=== PATIENT | female | born 1940 | race Caucasian/White ===

== ENCOUNTER 2017-08-13 23:32 | Inpatient (IN) | payer MEDICARE, MEDICAID ==
[~2017-08-13] VITALS: Ht 152.4 cm; Wt 70.0 kg
[~2017-08-13 23:32] MED LIST: ALB0.5UD IH; ALPR-624 PO; AMIT-189 PO; CLOP75TA35 PO; HYDR25TA4 PO; LOSA25TA96 PO; METF500T6 PO; METO10TA3 PO; METO25TA6 PO; PANT-47 PO; PRAM0.129 PO; SIMV20TA PO; SUCR1TAB PO; TRAZ-143 PO; VENL-191 PO
[2017-08-13] MEDS ORDERED: OMEP40CA37 PO (23:57)
[2017-08-13] MEDS ORDERED: HYDR-3965 PO (23:57)
[2017-08-13] MEDS ORDERED: LORA10TA7 PO (23:57)
[2017-08-13] MEDS ORDERED: DIPH25CA83 PO (23:57)
[2017-08-14] VITALS (17 sets, daily range): BP systolic 118–181; BP diastolic 49–93
[2017-08-14] MEDS: pantoprazole 40MG/NS 100ML BAG 100 ML IV SCH ×6 (00:12→19:25)
[2017-08-14 00:24] LABS: BASOPHILS % (AUTO) 0.4 % (0-1); EOSINOPHILS % (AUTO) 0.2 % (0-6); HEMATOCRIT 26.9 % (35.0-45.0); LYMPHOCYTES # (AUTO) 3.2 X10'3 (1.1-4.8); LYMPHOCYTES % (AUTO) 30.1 % (21-51); MEAN CORPUSCULAR HEMOGLOBIN 29.5 PG (27.0-31.0); MEAN CORPUSCULAR HGB CONC 33.4 % (33.0-36.5); MEAN CORPUSCULAR VOLUME 88.3 FL (78-98); MEAN PLATELET VOLUME 7.9 FL (7.4-10.4); MONOCYTES # (AUTO) 0.8 X10'3 (0-0.9); MONOCYTES % (AUTO) 7.7 % (2-12); NEUTROPHILS # (AUTO) 6.5 X10'3 (1.8-7.7); NEUTROPHILS % (AUTO) 61.6 % (42-75); PLATELET COUNT 207 X10'3 (140-440); RED BLOOD COUNT 3.04 X10'6 (4.20-5.60); RED CELL DISTRIBUTION WIDTH 15.1 % (11.5-14.5); WHITE BLOOD COUNT 10.5 X10'3 (4.5-11.0)
[2017-08-14 00:36] LABS: PARTIAL THROMBOPLASTIN TIME 23 SECONDS (22-32); PROTHROMBIN TIME 10.3 SECONDS (9.0-12.0)
[2017-08-14 00:39] LABS: ALANINE AMINOTRANSFERASE 9 U/L (12-78); ALBUMIN 2.4 G/DL (3.4-5.0); ALBUMIN/GLOBULIN RATIO 0.9 (1.1-1.5); ALKALINE PHOSPHATASE 67 IU/L (46-116); ANION GAP 10 (8-16); ASPARTATE AMINO TRANSFERASE 10 U/L (10-37); BILIRUBIN,TOTAL 0.2 MG/DL (0.1-1.0); BLOOD UREA NITROGEN 76 MG/DL (7-18); CALCIUM 7.3 MG/DL (8.5-10.1); CHLORIDE 109 MMOL/L (99-107); CREATININE 1.69 MG/DL (0.40-0.90); GLUCOSE 113 MG/DL (70-104); POTASSIUM 4.5 MMOL/L (3.5-5.1); SODIUM 140 MMOL/L (135-145); TOTAL CARBON DIOXIDE 20.6 MMOL/L (24-32); TOTAL PROTEIN 5.2 G/DL (6.4-8.2); eGFR 30 ML/MIN
[2017-08-14 02:06] LABS: CLARITY,URINE CLOUDY (Clear); COLOR,URINE YELLOW (Yellow); GLUCOSE, URINE NEGATIVE (Neg); KETONES,URINE NEGATIVE (Neg); LEUKOCYTE ESTERASE ,URINE LARGE (Neg); NITRITES, URINE POSITIVE (Neg); OCCULT BLOOD,URINE SMALL (Neg); PH,URINE 5.5 (4.8-8.0); PROTEIN,URINE NEGATIVE (Neg); UROBILINOGEN,URINE 0.2 E.U/dL (0.2-1.0)
[2017-08-14 02:10] LABS: UA COLLECTION TYPE CLN CATCH MIDSTREAM
[2017-08-14] MEDS ORDERED: acetaminophen 325mg tablet PO ONE (02:10)
[2017-08-14 02:37] LABS: WBC,URINE 30-50 /HPF (0-4)
[2017-08-14 02:38] LABS: BACTERIA,URINE 2+ /HPF (Neg); MUCUS STRANDS FEW /LPF (Neg); RBC,URINE 0-2 /HPF (0-2); SQUAMOUS EPITHELIAL CELL,UR MODERATE /LPF (FEW)
[2017-08-14] MEDS ORDERED: ondansetron/PF 4mg/2ml inj IV PRN (03:35)
[2017-08-14] MEDS ORDERED: MESSAGE TO PHARMACY PO ONE (03:50)
[2017-08-14] MEDS ORDERED: glucagon, human recombinant 1mg kit SUBCUT PRN (03:50)
[2017-08-14] MEDS ORDERED: dextrose ORAL solution 15 GM/59 ML bottle PO PRN ×2 (03:50)
[2017-08-14] MEDS ORDERED: dextrose 50%-water 50ml dispensing syringe IV PRN ×2 (03:50)
[2017-08-14] MEDS ORDERED: insulin Lispro (HumaLOG) vial - multi-dose SQ SCH (03:50)
[2017-08-14] MEDS: normal saline 1000ml 1,000 ML IV SCH ×4 (03:55→23:34)
[2017-08-14 04:12] LABS: HEMOGLOBIN A1C 7.3 % (4.5-6.2)
[2017-08-14 09:10] LABS: MAGNESIUM 1.5 MG/DL (1.5-2.4)
[2017-08-14] MEDS: CefTRIAXone/D5W-Rocephin 1gm 50 ML IV SCH ×2 (10:25→19:23)
[2017-08-14] MEDS ORDERED: AMIT-189 PO (11:59)
[2017-08-14] MEDS ORDERED: SPIR25TA5 PO (12:00)
[2017-08-14] MEDS ORDERED: LOSA25TA96 PO (12:00)
[2017-08-14] MEDS ORDERED: LORA10TA7 PO (12:00)
[2017-08-14] MEDS ORDERED: BISO1TAB4 PO (12:01)
[2017-08-14] MEDS ORDERED: METO25TA6 PO (12:02)
[2017-08-14] MEDS ORDERED: FURO-150 IV (12:08)
[2017-08-14] MEDS ORDERED: LIDOcaine Viscous 15ml cup ONE (15:50)
[2017-08-14] MEDS ORDERED: MIDAZolam 5mg/5ml vial ONE (15:50)
[2017-08-14] MEDS ORDERED: fentaNYL/PF 50MCG/1 ML 2ML syringe ONE (15:50)
[2017-08-14] MEDS ORDERED: glucagon, human recombinant 1mg kit ONE (16:54)
[2017-08-14] MEDS ORDERED: epiNEPHrine 0.1mg/ml 10ml syringe ONE (16:56)
[2017-08-14] MEDS ORDERED: lisinopril 10 MG tablet PO SCH (18:40)
[2017-08-14] MEDS ORDERED: morphine 2 MG/ML inj. syringe IV PRN (18:40)
[2017-08-14] MEDS ORDERED: hydrALAZINE 20mg/ml inj. IV PRN (18:40)
[2017-08-14 19:05] LABS: BASOPHILS % (AUTO) 0 % (0-1); EOSINOPHILS # (AUTO) 0.1 X10'3 (0-0.9); HEMATOCRIT 22.4 % (35.0-45.0); HEMOGLOBIN 7.6 g/dl (12.0-16.0); LYMPHOCYTES # (AUTO) 1.1 X10'3 (1.1-4.8); MEAN CORPUSCULAR HEMOGLOBIN 30.2 PG (27.0-31.0); MEAN CORPUSCULAR VOLUME 88.7 FL (78-98); MEAN PLATELET VOLUME 7.6 FL (7.4-10.4); MONOCYTES # (AUTO) 0.5 X10'3 (0-0.9); MONOCYTES % (AUTO) 4.9 % (2-12); NEUTROPHILS # (AUTO) 9.3 X10'3 (1.8-7.7); NEUTROPHILS % (AUTO) 84.1 % (42-75); PLATELET COUNT 190 X10'3 (140-440); RED BLOOD COUNT 2.53 X10'6 (4.20-5.60); RED CELL DISTRIBUTION WIDTH 15.6 % (11.5-14.5); WHITE BLOOD COUNT 11.1 X10'3 (4.5-11.0)
[2017-08-14 19:14] LABS: ALANINE AMINOTRANSFERASE 9 U/L (12-78); ALBUMIN 2.4 G/DL (3.4-5.0); ALBUMIN/GLOBULIN RATIO 0.8 (1.1-1.5); ALKALINE PHOSPHATASE 65 IU/L (46-116); ANION GAP 9 (8-16); ASPARTATE AMINO TRANSFERASE 10 U/L (10-37); BILIRUBIN,TOTAL 0.2 MG/DL (0.1-1.0); BLOOD UREA NITROGEN 64 MG/DL (7-18); CALCIUM 7.5 MG/DL (8.5-10.1); CHLORIDE 110 MMOL/L (99-107); CREATININE 1.49 MG/DL (0.40-0.90); GLUCOSE 205 MG/DL (70-104); SODIUM 141 MMOL/L (135-145); TOTAL CARBON DIOXIDE 21.7 MMOL/L (24-32); TOTAL PROTEIN 5.3 G/DL (6.4-8.2); eGFR 34 ML/MIN
[2017-08-14 19:22] LABS: MAGNESIUM 1.4 MG/DL (1.5-2.4); TROPONIN I < 0.04 NG/ML (0.0-0.05)
[2017-08-14] MEDS: metoprolol tartrate 25mg tablet PO SCH (19:24)
[2017-08-14] MEDS: atorvastatin 20mg tablet PO SCH (19:24)
[2017-08-14] MEDS: lactobacillus rhamnosus 10,000 MMU CELLS/CAPSULE PO SCH (19:24)
[2017-08-14] MEDS: amitryptiline 50mg tablet PO SCH (21:18)
[2017-08-14] MEDS: sucralfate 1 gm tablet PO SCH (21:28)
[2017-08-15] VITALS (17 sets, daily range): BP systolic 96–148; BP diastolic 43–76
[2017-08-15] MEDS: pantoprazole 40MG/NS 100ML BAG 100 ML IV SCH ×6 (01:24→23:27)
[2017-08-15 05:44] LABS: BASOPHILS % (AUTO) 0.3 % (0-1); EOSINOPHILS % (AUTO) 0.3 % (0-6); LYMPHOCYTES # (AUTO) 2.4 X10'3 (1.1-4.8); MEAN CORPUSCULAR HEMOGLOBIN 29.9 PG (27.0-31.0); MEAN CORPUSCULAR HGB CONC 33.5 % (33.0-36.5); MEAN CORPUSCULAR VOLUME 89.3 FL (78-98); MEAN PLATELET VOLUME 7.7 FL (7.4-10.4); MONOCYTES # (AUTO) 0.6 X10'3 (0-0.9); MONOCYTES % (AUTO) 6.7 % (2-12); NEUTROPHILS # (AUTO) 6.5 X10'3 (1.8-7.7); NEUTROPHILS % (AUTO) 67.7 % (42-75); PLATELET COUNT 191 X10'3 (140-440); RED BLOOD COUNT 2.27 X10'6 (4.20-5.60); RED CELL DISTRIBUTION WIDTH 15.4 % (11.5-14.5); WHITE BLOOD COUNT 9.5 X10'3 (4.5-11.0)
[2017-08-15 06:02] LABS: ALANINE AMINOTRANSFERASE 12 U/L (12-78); ALBUMIN 2.3 G/DL (3.4-5.0); ALBUMIN/GLOBULIN RATIO 0.9 (1.1-1.5); ALKALINE PHOSPHATASE 59 IU/L (46-116); ANION GAP 10 (8-16); ASPARTATE AMINO TRANSFERASE 10 U/L (10-37); BILIRUBIN,TOTAL 0.2 MG/DL (0.1-1.0); BLOOD UREA NITROGEN 47 MG/DL (7-18); BUN/CREATININE RATIO 35.3 (6.6-38.0); CALCIUM 8.1 MG/DL (8.5-10.1); CHLORIDE 111 MMOL/L (99-107); CREATININE 1.33 MG/DL (0.40-0.90); GLUCOSE 124 MG/DL (70-104); POTASSIUM 3.8 MMOL/L (3.5-5.1); SODIUM 143 MMOL/L (135-145); TOTAL CARBON DIOXIDE 21.6 MMOL/L (24-32); eGFR 39 ML/MIN
[2017-08-15 06:05] LABS: TROPONIN I < 0.04 NG/ML (0.0-0.05)
[2017-08-15 06:11] LABS: HEMOGLOBIN 6.8 g/dl (12.0-16.0)
[2017-08-15 06:12] LABS: HEMATOCRIT 20.3 % (35.0-45.0)
[2017-08-15] MEDS: sucralfate 1 gm tablet PO SCH ×4 (07:31→20:23)
[2017-08-15] MEDS ORDERED: magnesium 4gm in 100ml NS 100 ML IV PRN (08:05)
[2017-08-15] MEDS ORDERED: magnesium Cl slow-release 64mg tablet PO PRN (08:05)
[2017-08-15] MEDS ORDERED: magnesium/D5W IVPB 50 ML IV PRN (08:05)
[2017-08-15 08:34] LABS: H PYLORI ANTIBODY NEGATIVE (Neg)
[2017-08-15] MEDS ORDERED: proCHLORperazine 10 MG/2 ml inj IV PRN ×2 (08:40→09:50)
[2017-08-15] MEDS ORDERED: ondansetron/PF 4mg/2ml inj IV PRN (08:40)
[2017-08-15] MEDS: CefTRIAXone/D5W-Rocephin 1gm 50 ML IV SCH ×2 (09:23→20:19)
[2017-08-15] MEDS: normal saline 1000ml 1,000 ML IV SCH ×2 (09:34→20:23)
[2017-08-15] MEDS: lactobacillus rhamnosus 10,000 MMU CELLS/CAPSULE PO SCH ×2 (09:35→20:23)
[2017-08-15] MEDS: losartan 25mg tablet PO SCH (09:35)
[2017-08-15] MEDS: atorvastatin 20mg tablet PO SCH (09:35)
[2017-08-15] MEDS: metoprolol tartrate 25mg tablet PO SCH ×2 (09:36→20:25)
[2017-08-15] MEDS: nitroGLYCERIN 0.4mg/hour patch TD SCH (09:37)
[2017-08-15] MEDS ORDERED: HYDROcodone/acetaminophen 5mg/325mg tablet PO PRN (09:50)
[2017-08-15] MEDS ORDERED: HYDROmorphone inj. 0.5 MG/0.5 ML DISP.SYRIN IV PRN (09:50)
[2017-08-15] MEDS ORDERED: HYDROcodone/acetaminophen 10/325mg tab PO PRN (09:50)
[2017-08-15] MEDS ORDERED: HYDROmorphone 1 mg/ml syringe IV PRN (09:59)
[2017-08-15 10:11] LABS: BASOPHILS % (AUTO) 0.3 % (0-1); EOSINOPHILS # (AUTO) 0.1 X10'3 (0-0.9); EOSINOPHILS % (AUTO) 0.7 % (0-6); LYMPHOCYTES # (AUTO) 2.2 X10'3 (1.1-4.8); LYMPHOCYTES % (AUTO) 24.2 % (21-51); MEAN CORPUSCULAR HEMOGLOBIN 29.5 PG (27.0-31.0); MEAN CORPUSCULAR HGB CONC 33.3 % (33.0-36.5); MEAN CORPUSCULAR VOLUME 88.6 FL (78-98); MEAN PLATELET VOLUME 7.3 FL (7.4-10.4); MONOCYTES # (AUTO) 0.7 X10'3 (0-0.9); MONOCYTES % (AUTO) 7.3 % (2-12); NEUTROPHILS # (AUTO) 6.2 X10'3 (1.8-7.7); NEUTROPHILS % (AUTO) 67.5 % (42-75); PLATELET COUNT 187 X10'3 (140-440); RED BLOOD COUNT 2.24 X10'6 (4.20-5.60); WHITE BLOOD COUNT 9.2 X10'3 (4.5-11.0)
[2017-08-15 10:16] LABS: HEMATOCRIT 19.9 % (35.0-45.0); HEMOGLOBIN 6.6 g/dl (12.0-16.0)
[2017-08-15] MEDS ORDERED: pantoprazole 40 MG vial IV SCH (16:00)
[2017-08-15] MEDS: pramipexole 0.25mg tablet PO SCH (18:19)
[2017-08-15] MEDS: amitryptiline 50mg tablet PO SCH (20:25)
[2017-08-15 23:13] LABS: HEMATOCRIT 26.2 % (35.0-45.0); HEMOGLOBIN 8.9 g/dl (12.0-16.0); MEAN CORPUSCULAR HEMOGLOBIN 27.4 PG (27.0-31.0); MEAN CORPUSCULAR HGB CONC 33.8 % (33.0-36.5); MEAN CORPUSCULAR VOLUME 81.2 FL (78-98); MEAN PLATELET VOLUME 7.4 FL (7.4-10.4); PLATELET COUNT 172 X10'3 (140-440); RED BLOOD COUNT 3.23 X10'6 (4.20-5.60); RED CELL DISTRIBUTION WIDTH 22.4 % (11.5-14.5); WHITE BLOOD COUNT 8.8 X10'3 (4.5-11.0)
[2017-08-16 03:00] VITALS: BP 139/63
[2017-08-16] MEDS: normal saline 1000ml 1,000 ML IV SCH (04:45)
[2017-08-16] MEDS: pantoprazole 40MG/NS 100ML BAG 100 ML IV SCH (05:02)
[2017-08-16 06:05] LABS: BASOPHILS % (AUTO) 0.2 % (0-1); EOSINOPHILS # (AUTO) 0.2 X10'3 (0-0.9); EOSINOPHILS % (AUTO) 2.2 % (0-6); HEMATOCRIT 27.8 % (35.0-45.0); HEMOGLOBIN 9.6 g/dl (12.0-16.0); LYMPHOCYTES % (AUTO) 23.9 % (21-51); MEAN CORPUSCULAR HEMOGLOBIN 28.1 PG (27.0-31.0); MEAN CORPUSCULAR HGB CONC 34.4 % (33.0-36.5); MEAN CORPUSCULAR VOLUME 81.8 FL (78-98); MEAN PLATELET VOLUME 8.1 FL (7.4-10.4); MONOCYTES # (AUTO) 0.7 X10'3 (0-0.9); MONOCYTES % (AUTO) 8.9 % (2-12); NEUTROPHILS # (AUTO) 5.3 X10'3 (1.8-7.7); NEUTROPHILS % (AUTO) 64.8 % (42-75); PLATELET COUNT 166 X10'3 (140-440); RED BLOOD COUNT 3.39 X10'6 (4.20-5.60); RED CELL DISTRIBUTION WIDTH 22.3 % (11.5-14.5); WHITE BLOOD COUNT 8.2 X10'3 (4.5-11.0)
[2017-08-16 06:19] LABS: ALANINE AMINOTRANSFERASE 16 U/L (12-78); ALBUMIN 2.3 G/DL (3.4-5.0); ALBUMIN/GLOBULIN RATIO 0.8 (1.1-1.5); ALKALINE PHOSPHATASE 65 IU/L (46-116); ANION GAP 9 (8-16); ASPARTATE AMINO TRANSFERASE 20 U/L (10-37); BILIRUBIN,TOTAL 0.3 MG/DL (0.1-1.0); BLOOD UREA NITROGEN 23 MG/DL (7-18); BUN/CREATININE RATIO 19.3 (6.6-38.0); CALCIUM 8.2 MG/DL (8.5-10.1); CHLORIDE 110 MMOL/L (99-107); CREATININE 1.19 MG/DL (0.40-0.90); GLUCOSE 109 MG/DL (70-104); MAGNESIUM 1.2 MG/DL (1.5-2.4); POTASSIUM 3.5 MMOL/L (3.5-5.1); SODIUM 141 MMOL/L (135-145); TOTAL CARBON DIOXIDE 21.9 MMOL/L (24-32); TOTAL PROTEIN 5.1 G/DL (6.4-8.2); eGFR 44 ML/MIN
[2017-08-16 07:06] VITALS: BP 158/67
[2017-08-16] MEDS: CefTRIAXone/D5W-Rocephin 1gm 50 ML IV SCH (08:17)
[2017-08-16] MEDS: lactobacillus rhamnosus 10,000 MMU CELLS/CAPSULE PO SCH (08:18)
[2017-08-16] MEDS: sucralfate 1 gm tablet PO SCH (08:18)
[2017-08-16] MEDS: atorvastatin 20mg tablet PO SCH (08:18)
[2017-08-16] MEDS: metoprolol tartrate 25mg tablet PO SCH (08:18)
[2017-08-16] MEDS: losartan 25mg tablet PO SCH (08:18)
[2017-08-16] MEDS: pramipexole 0.25mg tablet PO SCH (08:20)
[2017-08-16] MEDS: nitroGLYCERIN 0.4mg/hour patch TD SCH (08:20)
[2017-08-16] MEDS ORDERED: clopidogrel 75mg tablet PO SCH (08:30)
[2017-08-16] MEDS ORDERED: levoFLOXACIN 500mg tablet PO SCH (09:25)
[2017-08-16] MEDS ORDERED: LEVO500T89 PO (09:32)
[2017-08-16] MEDS ORDERED: NIT10P TD (09:32)
[2017-08-16] MEDS ORDERED: PANT40TA4 PO (09:32)
[2017-08-16] MEDS ORDERED: MAGN400C PO (09:33)
[2017-08-16] MEDS ORDERED: pantoprazole 40mg Tablet.DR PO SCH (20:00)
== END 2017-08-16 13:25 | disposition home or self-care (01) | DRG 682 ==
LOC: ER 23:32 → ED HOLD 08-14 03:34 → PCU 3S 08-14 04:47
PROVIDERS: ADMIT Internal Medicine; ATTEND Internal Medicine
PROC: 3E0G8GC Introduction of Other Therapeutic Substance into Upper GI, Via Natural or Artificial Opening Endoscopic (ICD-10-PCS; principal; 2017-08-14)
PROC: 0W3P8ZZ Control Bleeding in Gastrointestinal Tract, Via Natural or Artificial Opening Endoscopic (ICD-10-PCS; 2017-08-14)
PROC: 30233N1 Transfusion of Nonautologous Red Blood Cells into Peripheral Vein, Percutaneous Approach (ICD-10-PCS; 2017-08-15)
DX: N17.9 Acute kidney failure, unspecified (principal); K26.4 Chronic or unspecified duodenal ulcer with hemorrhage; K25.4 Chronic or unspecified gastric ulcer with hemorrhage; D62 Acute posthemorrhagic anemia; N39.0 Urinary tract infection, site not specified; I25.10 Atherosclerotic heart disease of native coronary artery without angina pectoris; B96.20 Unspecified Escherichia coli [E. coli] as the cause of diseases classified elsewhere; E11.43 Type 2 diabetes mellitus with diabetic autonomic (poly)neuropathy; M19.90 Unspecified osteoarthritis, unspecified site; I10 Essential (primary) hypertension; K31.84 Gastroparesis; Z95.5 Presence of coronary angioplasty implant and graft; Z90.49 Acquired absence of other specified parts of digestive tract; Z79.02 Long term (current) use of antithrombotics/antiplatelets; Z79.84 Long term (current) use of oral hypoglycemic drugs; Z79.899 Other long term (current) drug therapy; Z87.442 Personal history of urinary calculi; Z80.9 Family history of malignant neoplasm, unspecified; Z82.0 Family history of epilepsy and other diseases of the nervous system
CPT/HCPCS: 36415; 43236; 71045; 71250; 74176; 80053; 81001; 82948; 83036; 83690; 83735; 83880; 84484; 85025; 85027; 85610; 85730; 86677; 86885; 86900; 86901; 86920; 87070; 87077; 87088; 87186; 93005; 99285; A4620; C9113; G0500; J0171; J0696; J1610; J2250; J2270; J2405; J3010; J7030; P9016